=== PATIENT | female | born 1970 | race Caucasian/White ===

== ENCOUNTER → 2018-10-20 10:44 | Emergency (ER) | payer OTHER ==
[~2018-10-20 10:44] MED LIST: Iohexol 300* (CONTRAST) 10 ML SDV IV ONE; Magnesium Oxide TAB* 400 MG PO ONE; NS 0.9% 1000 ML** 1,000 ML IV ONE; Ondansetron INJ* 2 MG/ML VIAL IV ONE; PROCHLORPERAZINE INJ 5 MG/ML 2 ML VIAL IV PRN; fentaNYL* 50 MCG/ML 2 ML VIAL (100 MCG VIAL) IV SLOW PU ONE
--- NOTE | 2018-10-20 11:23 | ED ---
GI/ HPI - HPI Summary HPI Summary: This pt is a 47 y/o female presenting to [facility] c/o nausea, vomiting, and right flank pain today. Pt reports she had J-pouch surgery for colon CA and a temporary ileostomy was placed about 1 month ago in [place] by Dr. Poole. She states she had complications from this surgery and her uterus and bladder were "nicked" and now has stents in her ureter and bladder. Pt was discharged home on 10/15/18. Pt reports feeling well since being discharged home until this morning. This morning she woke up with nausea and vomiting, unable to tolerate PO. Pt spoke with the ostomy nurse this morning and was advised to come to the ED. Currently she reports right flank pain. Denies fever. Pt has an ostomy bag and denies pain around this area. - History of Current Complaint Chief Complaint: EDNauseaVomitDiarrh Time Seen by Provider: 10/20/18 11:07 Stated Complaint: SURGERY THREE WEEKS AGO, FEVER, VOMIING, WEAKNESS Hx Obtained From: Patient Onset/Duration: Started Hours Ago, Still Present Timing: Lasting Hours Current Severity: Moderate Pain Intensity: 6 Location of Pain: Flank - Right Associated Signs and Symptoms: Positive: Nausea, Vomiting, Flank Pain - Right. Negative: Fever Aggravating Factor(s): Nothing Alleviating Factor(s): Nothing - Allergy/Home Medications Allergies/Adverse Reactions: Allergies Allergy/AdvReac Type Severity Reaction Status Date / Time morphine Allergy Difficulty Verified 10/20/18 11:03 Breathing Home Medications: Home Medications Enoxaparin(*) [Lovenox(*)] 40 mg SUBCUT Q24HR 10/20/18 [History Confirmed ] Hydrocodone/Acetaminophen [Hydrocodone-Acetamin 5-325 mg] 1 - 2 tab PO Q4H PRN 10/20/18 [History Confirmed 10/20/18] Levothyroxine Sodium 75 mg PO DAILY 10/20/18 [History Confirmed 10/20/18] Tamsulosin CAP* [Flomax CAP*] 0.4 mg PO DAILY 10/20/18 [History Confirmed ] PMH/Surg Hx/FS Hx/Imm Hx Endocrine/Hematology History: Denies: Hx Diabetes Cardiovascular History: Denies: Hx Hypertension, Hx Pacemaker/ICD GI History: Reports: Other GI Disorders - resection of all Large bowels History: Reports: Other Problems/Disorders - hx renal calculi resolved in 2009 Denies: Hx Renal Disease Sensory History: Denies: Hx Hearing Aid Neurological History: Reports: Hx Headaches, Hx Migraine Psychiatric History: Denies: Hx Panic Disorder - Cancer History Cancer Type, Location and Year: Colon CA - Surgical History Surgery Procedure, Year, and Place: chest surgery (PECTUS EXCAVATUM W/ METAL JANAY IN CHEST) 83;- METAL RODS REMOVED 2016. hysterectomy 02;. cholectomy 07;. 91;. COLON - REMOVED - DUE AFC - HEREDITARY. ileostomy/Jpouch. ureteral stents bilaterally Hx Anesthesia Reactions: No Infectious Disease History: No Infectious Disease History: Denies: Traveled Outside the [place] in Last 30 Days - Family History Known Family History: Negative: Cardiac Disease, Hypertension, Diabetes - Social History Alcohol Use: Occasionally Substance Use Type: Reports: None Smoking Status (MU): Never Smoked Tobacco Review of Systems Negative: Fever Positive: Vomiting, Nausea Positive: flank pain - right All Other Systems Reviewed And Are Negative: Yes Physical Exam - Summary Physical Exam Summary: VITAL SIGNS: Reviewed. GENERAL: Patient is a thin female in no acute distress. HEAD AND FACE: Normocephalic and atraumatic. EYES: PERRLA, EOMI x 2, No injected conjunctiva. EARS: Hearing grossly intact. Ear canals and tympanic membranes are WNL. MOUTH: Oropharynx within normal limits. NECK: Supple, trachea is midline, no adenopathy, no JVD. CHEST: Symmetric, no tenderness at palpation LUNGS: Clear to auscultation bilaterally. No wheezing or crackles. CVS: RRR, S1 and S2 present, no murmurs or gallops appreciated. ABDOMEN: Soft, right flank tenderness. Ileostomy bag. EXTREMITIES: FROM in all major joints, no edema, no cyanosis or clubbing. NEURO: Alert and oriented x 3. No acute neurological deficits. Speech is normal. SKIN: Dry and warm. Triage Information Reviewed: Yes Vital Signs On Initial Exam: Initial Vitals Temp Pulse Resp BP Pulse Ox 98.9 F 126 16 115/88 98 10/20/18 10:59 10/20/18 10:59 10/20/18 10:59 10/20/18 10:59 10/20/18 10:59 Vital Signs Reviewed: Yes Diagnostics - Vital Signs Vital Signs Temp Pulse Resp BP Pulse Ox 10/20/18 10:59 98.9 F 126 16 115/88 98 - Laboratory Result Diagrams: 10/20/18 11:41 10/20/18 11:41 Lab Statement: Any lab studies that have been ordered have been reviewed, and results considered in the medical decision making process. - CT CT Abdomen/Pelvis CT Interpretation Completed By: Radiologist Summary of CT Findings: IMPRESSION: 1. Postsurgical change, status post total colectomy. 2. There is small amount of free fluid within the pelvis. 3. Bilateral ureteral stents with mild bilateral hydronephrosis. 4. Fatty infiltration of the liver. Dr. Jc has reviewed this report. - EKG 12:06 Cardiac Rate: Tachycardia - at 106 bpm EKG Rhythm: Sinus Tachycardia Summary of EKG Findings: No ST elevations. Normal axis. Re-Evaluation - Re-Evaluation First Eval Re-Evaluation Time: 15:44 Change: Improved Comment: Reviewed the lab and CT results with pt. Discussed Julissa Garcia's, CASE INVESTIGATOR , recommendations with the pt. Pt agrees to go home, she feels better. GIGU Course/Dx - Course Assessment/Plan: This pt is a 47 y/o female presenting to [facility] c/o nausea, vomiting, and right flank pain today. Pt reports she had J-pouch surgery for colon CA and a temporary ileostomy was placed about 1 month ago in [place] by Dr. Poole. She states she had complications from this surgery and her uterus and bladder were "nicked" and now has stents in her ureter and bladder. Pt was discharged home on 10/15/18. Pt reports feeling well since being discharged home until this morning. This morning she woke up with nausea and vomiting, unable to tolerate PO. Pt spoke with the ostomy nurse this morning and was advised to come to the ED. Currently she reports right flank pain. Denies fever. Pt has an ostomy bag and denies pain around this area. Past medical history significant for colon cancer. Blood test results without any significant abnormality except for platelet count of 595, chloride is 94, anion gap is 15, glucose is 110, lactic acid is 2.3, calcium is 10.4, magnesium is 1.7, total bili is 1.5 and alkaline phosphatase 157. In the ED course the patient was given IV fluids, she was given Compazine for nausea and vomiting and fentanyl for pain. Abdominal and pelvic CT IMPRESSION: 1. POSTSURGICAL CHANGE, STATUS POST TOTAL COLECTOMY. 2. THERE IS SMALL AMOUNT OF FREE FLUID WITHIN THE PELVIS. 3. BILATERAL URETERAL STENTS WITH MILD BILATERAL HYDRONEPHROSIS. 4. FATTY INFILTRATION OF THE LIVER. After the patient was hydrated, given the Compazine and fentanyl for the pain, the patients symptoms have resolved. I discussed my physical exam and findings with the Ms. Pari Garcia CASE INVESTIGATOR with Dr. Poole she recommends for the patient to be discharged home with a prescription for Compazine and that she has an appointment to see her as well as Dr. Poole tomorrow morning. I discussed all the findings and test results with the patient. Patient was instructed to return to the emergency room immediately if any of the symptoms return worsens. Plan of care was discussed with the patient and understands and agrees. All questions were answered at patient satisfaction. There were no further complaints or concerns. Lung exam before discharge: CTA B/L. Good air exchange. No wheezing or crackles heard. CVS: S1 and S2 present. No murmurs appreciated. Patient is alert and oriented x 3. Patient is hemodynamically stable. Patient will be discharged home with follow up from her PCP in the next 2-3 days. - Diagnoses Provider Diagnoses: Nausea and vomiting, Flank pain - Physician Notifications Discussed Care Of Patient With: Julissa Garcia Time Discussed With Above Provider: 15:39 Instructed by Provider To: Other - Discussed the case with Julissa Garcia NP with Dr. oPole, who recommends to discharge the pt home with rx for Compazine. Pt has an appointment with Dr. Poole tomorrow morning. Discharge - Sign-Out/Discharge Documenting (check all that apply): Patient Departure - Discharge home Patient Received Moderate/Deep Sedation with Procedure: No - Discharge Plan Condition: Stable Disposition: HOME Prescriptions: Prochlorperazine TAB* [Compazine Tab*] 10 mg PO Q8H PRN #30 tab PRN Reason: Vomiting Patient Education Materials: Acute Nausea and Vomiting (ED), Flank Pain (ED) Referrals: Tobin Carter MD [Primary Care Provider] - Additional Instructions: FOLLOW UP WITH DR. POOLE TOMORROW MORNING, 10/21/18, SCHEDULED. RETURN TO THE EMERGENCY DEPARTMENT FOR ANY WORSENING OR NEW SYMPTOMS. - Attestation Statements Document Initiated by Scribe: Yes Documenting Scribe: Basilia Beaulieu Provider For Whom Scribe is Documenting (Include Credential): Den Jc MD Scribe Attestation: Basilia Raines, scribed for Den Jc MD on 10/20/18 at 1617. Status of Scribe Document: Ready
[2018-10-20 11:54] LABS: ABS Basophils 0.1 10^3/ul (0-0.2); ABS Eosinophils 0.1 10^3/ul (0-0.6); ABS Lymphocytes 1.7 10^3/ul (1.0-4.8); ABS Monocytes 0.8 10^3/ul (0-0.8); ABS Neutrophils 7.6 10^3/ul (1.5-7.7); Eosinophil % 1.1 %; Hematocrit 37 % (35-47); Hemoglobin 12.1 g/dL (12.0-16.0); Lymphocyte % 16.4 %; Mean Corpuscular HGB Conc 33 g/dL (31-36); Mean Corpuscular Hemoglobin 28 pg (27-31); Mean Corpuscular Volume 86 fL (80-97); Mean Platelet Volume 6.7 fL (7.4-10.4); Platelet Count 595 10^3/uL (150-450); Red Blood Count 4.29 10^6 /uL (3.70-4.87); Red Cell Distribution Width 14 % (10.5-15); White Blood Count 10.2 10^3/uL (3.5-10.8)
[2018-10-20 12:39] LABS: Albumin 4.6 g/dL (3.2-5.2); Albumin/Globulin Ratio 1.3 (1-3); BUN/Creatinine Ratio 20.5 (8-20); C Reactive Protein 2.14 mg/L (<8.01); Calcium 10.4 mg/dL (8.6-10.3); EGFR Non-African American 85.1 (>60); Globulin 3.5 g/dL (2-4); Magnesium 1.7 mg/dL (1.9-2.7); Potassium 4.3 mmol/L (3.5-5.0); Total Bilirubin 1.5 mg/dL (0.2-1.0); Total Protein 8.1 g/dL (6.4-8.9)
[2018-10-20 16:04] VITALS: BP 122/71
== END | disposition home or self-care (01) ==
LOC: ED 10:44
DX: R11.2 Nausea with vomiting, unspecified (principal); R10.84 Generalized abdominal pain; R51 Headache
CPT/HCPCS: 36415; 74177; 80053; 82150; 83605; 83690; 83735; 83880; 85025; 86140; 93005; 96374; 96375; 99284; J0780; J3010; Q9967

== ENCOUNTER 2018-10-31 21:24 | Observation (INO) | payer OTHER ==
[2018-10-31] MEDS ORDERED: NS 0.9% 1000 ML** 1,000 ML IV ONE (23:36)
[2018-10-31] MEDS ORDERED: Ondansetron INJ* 2 MG/ML VIAL IV ONE (23:36)
--- NOTE | 2018-10-31 23:36 | ED ---
Complex/Multi-Sys Presentation - HPI Summary HPI Summary: Patient with history of recent colon resection for colon cancer on 09/22 in [place] with current ileostomy complains of significant fluid output into her ileostomy bag, nausea and vomiting and feeling dehydrated. Patient states she has been having episodes of nausea and vomiting since discharge from surgery, has a prescription for Compazine which is not helping. States increase in fluid output into her ileostomy bag today. Denies fever, cough, sore throat, CP , SOB, abdominal pain, change in urine, change in BM. - History Of Current Complaint Chief Complaint: EDNauseaVomitDiarrh Time Seen by Provider: 10/31/18 23:16 Hx Obtained From: Patient Onset/Duration: Sudden Onset, Lasting Hours Timing: Intermittent, Lasting: Severity Currently: Moderate Severity Initially: Moderate Associated Signs And Symptoms: Positive: Nausea, Vomiting, Diarrhea - Allergies/Home Medications Allergies/Adverse Reactions: Allergies Allergy/AdvReac Type Severity Reaction Status Date / Time morphine Allergy Difficulty Verified 10/20/18 11:03 Breathing PMH/Surg Hx/FS Hx/Imm Hx Endocrine/Hematology History: Denies: Hx Diabetes Cardiovascular History: Denies: Hx Hypertension, Hx Pacemaker/ICD GI History: Reports: Other GI Disorders - resection of all Large bowels History: Reports: Other Problems/Disorders - hx renal calculi resolved in 2009 Denies: Hx Renal Disease Sensory History: Denies: Hx Hearing Aid Neurological History: Reports: Hx Headaches, Hx Migraine Psychiatric History: Denies: Hx Panic Disorder - Cancer History Cancer Type, Location and Year: Colon CA - Surgical History Surgery Procedure, Year, and Place: chest surgery (PECTUS EXCAVATUM W/ METAL JANAY IN CHEST) 83;- METAL RODS REMOVED 2016. hysterectomy 02;. cholectomy 07;. 91;. COLON - REMOVED - DUE AFC - HEREDITARY. ileostomy/Jpouch. ureteral stents bilaterally Hx Anesthesia Reactions: No Infectious Disease History: No Infectious Disease History: Denies: Traveled Outside the US in Last 30 Days - Family History Known Family History: Negative: Cardiac Disease, Hypertension, Diabetes - Social History Alcohol Use: Occasionally Substance Use Type: Reports: None Smoking Status (MU): Never Smoked Tobacco Review of Systems Constitutional: Negative Eyes: Negative ENT: Negative Cardiovascular: Negative Respiratory: Negative Positive: Vomiting, Diarrhea, Nausea Genitourinary: Negative Musculoskeletal: Negative Skin: Negative Neurological: Negative Psychological: Normal All Other Systems Reviewed And Are Negative: Yes Physical Exam - Summary Physical Exam Summary: Abdomen nontender. Lung sounds clear to auscultation bilaterally. RRR. Ileostomy present. No blood noted in ileostomy. Triage Information Reviewed: Yes Vital Signs On Initial Exam: Initial Vitals Temp Pulse Resp BP Pulse Ox 98.5 F 120 18 120/73 97 10/31/18 21:37 10/31/18 21:37 10/31/18 21:37 10/31/18 21:37 10/31/18 21:37 Vital Signs Reviewed: Yes Appearance: Positive: Well-Appearing Skin: Positive: Warm Head/Face: Positive: Normal Head/Face Inspection Eyes: Positive: Normal Neck: Positive: Supple Respiratory/Lung Sounds: Positive: Clear to Auscultation Cardiovascular: Positive: Normal Abdomen Description: Positive: Nontender Musculoskeletal: Positive: Normal Neurological: Positive: Normal Psychiatric: Positive: Normal AVPU Assessment: Alert - [place] Coma Scale Best Eye Response: 4 - Spontaneous Best Motor Response: 6 - Obeys Commands Best Verbal Response: 5 - Oriented Coma Scale Total: 15 Diagnostics - Vital Signs Vital Signs Temp Pulse Resp BP Pulse Ox 10/31/18 21:37 98.5 F 120 18 120/73 97 - Laboratory Result Diagrams: 11/01/18 00:22 11/01/18 00:00 Lab Statement: Any lab studies that have been ordered have been reviewed, and results considered in the medical decision making process. Complex Multi-Symp Course/Dx Course Of Treatment: Patient with history of recent colon resection for colon cancer on 09/22 in [place] with current ileostomy complains of significant fluid output into her ileostomy bag, nausea and vomiting and feeling dehydrated. Patient states she has been having episodes of nausea and vomiting since discharge from surgery, has a prescription for Compazine which is not helping. States increase in fluid output into her ileostomy bag today. Denies fever, cough, sore throat, CP, SOB, abdominal pain, change in urine, change in BM. Physical exam:Abdomen nontender. Lung sounds clear to auscultation bilaterally. RRR. Ileostomy present. No blood noted in ileostomy. Tachycardic. Vital signs otherwise unremarkable. WBC 20, increased from prior visit on 10/20. Sodium 129. Lactic 2.2. Creatinine 2.0 increased from 173 on prior visit 10/20. Patient nausea controlled with Phenergan IM. States she feels better after [address] abdomen and pelvis without contrast pending. - Diagnoses Provider Diagnoses: Nausea vomiting and diarrhea Discharge - Sign-Out/Discharge Documenting (check all that apply): Sign-Out Patient Signing out patient TO: Ryan Alcantara Patient Received Moderate/Deep Sedation with Procedure: No - Discharge Plan Condition: Stable Referrals: Tobin Carter MD [Primary Care Provider] - - Billing Disposition and Condition Condition: STABLE
[2018-11-01] MEDS ORDERED: NS 0.9% 1000 ML** 1,000 ML IV ONE (00:46)
[2018-11-01 00:48] LABS: Hematocrit 41 % (35-47); Hemoglobin 13.9 g/dL (12.0-16.0); Mean Corpuscular HGB Conc 34 g/dL (31-36); Mean Corpuscular Hemoglobin 28 pg (27-31); Mean Corpuscular Volume 83 fL (80-97); Red Blood Count 4.91 10^6 /uL (3.70-4.87); Red Cell Distribution Width 14 % (10-15); White Blood Count 20.4 10^3/uL (3.5-10.8)
[2018-11-01] MEDS ORDERED: PROMETHAZINE 25 MG PR ONE (00:55)
[2018-11-01 01:11] LABS: ABS Lymphocytes 1.3 10^3/ul (1.0-4.8); ABS Monocytes 0.7 10^3/ul (0-0.8); ABS Neutrophils 18.4 10^3/ul (1.5-7.7); Eosinophil % 0.2 %; Lymphocyte % 6.5 %; Mean Platelet Volume 8.1 fL (7.4-10.4); Nucleated Red Blood Cells % 0.1; Platelet Count 495 10^3/uL (150-450)
[2018-11-01 01:11] LABS: Albumin 5.4 g/dL (3.2-5.2); Calcium 11.5 mg/dL (8.6-10.3); Potassium 4.7 mmol/L (3.5-5.0); Total Bilirubin 1.4 mg/dL (0.2-1.0)
[2018-11-01 01:17] LABS: Albumin/Globulin Ratio 1.5 (1-3); BUN/Creatinine Ratio 11.5 (8-20); C Reactive Protein 1.81 mg/L (<8.01); EGFR Non-African American 26.5 (>60); Globulin 3.6 g/dL (2-4)
[2018-11-01 01:23] LABS: HCG Pregnancy 13.5 mIU/mL
[2018-11-01] MEDS ORDERED: Promethazine INJ(RESTRICTED)* 25 MG/ML 1 ML VIAL IM ONE (01:23)
[2018-11-01] MEDS ORDERED: Loperamide CAP* 2 MG PO ONE ×2 (01:58→02:00)
--- NOTE | 2018-11-01 05:30 | ED ---
Progress - Progress Note Progress Note: Receiving patient from [facility] pending CT Abd/Pel CT ABD/Pel: 1. Cholecystectomy. 2. Hysterectomy. 3. Status post subtotal colectomy with right cobstomy. 4. Increased density within the Marilin's pouch lumen and blood cannot be entirely excluded. 5. Bilateral ureteral stents. ED Provider has reviewed this report. Dr. Alvarado, Hospitalist, accepted the patient for admission. A plan for admission was discussed with the patient and she was agreeable with this plan. Course/Dx - Course Course Of Treatment: Receiving patient from [facility] pending CT Abd/Pel. CT ABD /Pel: 1. Cholecystectomy. 2. Hysterectomy. 3. Status post subtotal colectomy with right cobstomy. 4. Increased density within the Marilin's pouch lumen and blood cannot be entirely excluded. 5. Bilateral ureteral stents. ED Provider has reviewed this report. Dr. Alvarado, Hospitalist, accepted the patient for admission. A plan for admission was discussed with the patient and she was agreeable with this plan. - Diagnoses Provider Diagnoses: Gastroenteritis, Dehydration - Provider Notifications Discussed Care Of Patient With: Basilia Alvarado - Hospitalist Time Discussed With Above Provider: 06:00 Discharge - Sign-Out/Discharge Documenting (check all that apply): Patient Departure - Admission - Discharge Plan Condition: Stable Disposition: ADMITTED TO [facility] - Billing Disposition and Condition Condition: STABLE Disposition: Admitted to [facility] - Attestation Statements Document Initiated by Erick: Yes Documenting Adrienneibe: Rayray Martin Provider For Whom Erick is Documenting (Include Credential): Ryan Alcantara MD Scribe Attestation: Rayray Raines, scribed for Ryan Alcantara MD on 11/01/18 at 2307. Scribe Documentation Reviewed: Yes Provider Attestation: The documentation as recorded by the Rayray rdz accurately reflects the service I personally performed and the decisions made by , Ryan Alcantara MD Status of Scribe Document: Viewed
[2018-11-01 07:14] LABS: Hematocrit 32 % (35-47); Mean Corpuscular HGB Conc 34 g/dL (31-36); Mean Corpuscular Hemoglobin 28 pg (27-31); Mean Corpuscular Volume 83 fL (80-97); Mean Platelet Volume 6.8 fL (7.4-10.4); Platelet Count 352 10^3/uL (150-450); Red Blood Count 3.91 10^6 /uL (3.70-4.87); Red Cell Distribution Width 14 % (10-15); White Blood Count 7.9 10^3/uL (3.5-10.8)
[2018-11-01] MEDS ORDERED: HYDROcodone/ACETAMIN 5-325 MG* 1 TAB PO PRN (07:35)
[2018-11-01] MEDS ORDERED: Acetaminophen TAB* 325 MG PO PRN (07:43)
[2018-11-01 07:44] LABS: BUN/Creatinine Ratio 15.4 (8-20); EGFR African American 47.2 (>60); Magnesium 1.6 mg/dL (1.9-2.7); Potassium 4.5 mmol/L (3.5-5.0)
[2018-11-01] MEDS ORDERED: Magnesium Sulfate 2 GM IV* 2 GM/50 ML BAG IVPB ONE (08:00)
[2018-11-01 08:20] LABS: Albumin/Globulin Ratio 1.5 (1-3); Globulin 2.7 g/dL (2-4); Indirect Bilirubin 1.1 mg/dL (0.3-1.0); Total Bilirubin 1.3 mg/dL (0.2-1.0); Total Protein 6.7 g/dL (6.4-8.9)
[2018-11-01] MEDS: PROCHLORPERAZINE INJ 5 MG/ML 2 ML VIAL IV PRN (09:48)
[2018-11-01] MEDS: Enoxaparin(*) 40 MG/0.4 ML SYR SUBCUT SCH (09:49)
[2018-11-01] MEDS: Azithromycin 500 mg/250 ml NS 500 MG/250 ML BAG IVPB SCH (09:49)
[2018-11-01] MEDS: Tamsulosin CAP* 0.4 MG PO SCH (09:50)
--- NOTE | 2018-11-01 10:36 | HP ---
CC: Dr. Carter HISTORY AND PHYSICAL: DATE OF ADMISSION: 11/01/18 TIME OF EVALUATION: 7:20 a.m. PRIMARY CARE PROVIDER: Dr. Carter CHIEF COMPLAINT: Diarrhea. HISTORY OF PRESENT ILLNESS: Mrs. Vincent is a 42-year-old with a past medical history of hypothyroidi sm, familial adenomatous polyposis, colon cancer, status post total colectomy with ileostomy on 09/22, who presents to the emergency room with complaints of nausea, vomiting, and increased output fro m her ileostomy. The patient states that she had a colectomy with J-pouch and ileostomy on 09/22/18 done at [facility]. She states she was diagnosed with stage 1 colon cancer and the p trent is for her to return and have an anastomosis done end of November. She states her surgery was complic ated by bladder and ureter damage, requiring stent placement. She states that she was recovering fro m surgery, but yesterday she started to have GI upset. She had German food that included chicken we dges and fried rice and after that her GI upset became worse followed by 2 episodes of vomiting. She states that her ileostomy output became very worry and she lost count of how many times she had to e mpty her bag. She denies fever, chills, chest pain, cough, palpitations. As described above, she hernandez s had GI issues since surgery, but they got markedly worse yesterday after her meal. PAST MEDICAL HISTORY: 1. Colon cancer, reportedly stage 1, status post colectomy with J-pouch and ileostomy with reported bladder and ureteral lesions, requiring bilateral stent placement. 2. Hypothyroidism. 3. Familial adenomatous polyposis. 4. Status post oophorectomy. 5. Status post cholecystectomy. 6. Status post partial colectomy when she was 9 years old. 7. Status post pectus excavatum surgery. 8. Status post abdominal hysterectomy. MEDICATION LIST: 1. Lovenox 40 mg subcutaneously daily for 4 weeks after surgery. 2. Hydrocodone/acetaminophen 5/325 mg 1 to 2 tablets p.o. q.4 hours p.r.n. pain or fever. 3. Levothyroxine 75 mg p.o. daily. 4. Compazine 10 mg p.o. q.8 hours p.r.n. nausea and vomiting. 5. Tamsulosin 0.4 mg p.o. daily. ALLERGIES: With MORPHINE, the patient experienced difficulty breathing. FAMILY HISTORY: Her mother is healthy. Father of suicide. SOCIAL HISTORY: She is a nonsmoker. No history of alcohol, tobacco, or drug use. 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 She is . She has 2 children that live with her, but they are in their e anatoly 20s and there was no sick contact at home. Surrogate decision maker is her , Montez leija, phone number is [phone]. REVIEW OF SYSTEMS: A 14-point review of was performed and all the pertinent negative and positive fi ndings are in the HPI. PHYSICAL EXAMINATION GENERAL: The patient is a pleasant, middle-aged lady, lying in bed, in no acute distress. VITAL SIGNS: Temperature 98.5, heart rate is 90, respiratory rate is 18, oxygen saturation is 100% o n room air, blood pressure is 119/70. HEENT: Pupils are equal, dry mucous membranes. CVS: Normal S1, S2. Regular rate and rhythm. CHEST: Breath sounds present bilaterally with no added sounds. ABDOMEN: Soft. There are multiple laparoscopic surgical incisions, well healed with no erythema or drainage. The patient had an ostomy on the right lower quadrant draining watery, green stool. Bowel sounds are present. EXTREMITIES: No edema. NEUROLOGIC: She is alert and oriented x3. Able to move all 4 extremities. LABORATORY/IMAGING DATA: The patient had an initial CBC that showed WBC of 20.4, hemoglobin of 13.9 , hematocrit of 41, platelets 495 with 89% neutrophils. A repeat CBC done 7 hours later shows a WBC of 7.9, hemoglobin of 11, hematocrit of 32, platelets of 352. Chemistry showed sodium of 129, potass ium of 4.7, chloride of 88, bicarb of 19, anion gap of 22, BUN of 23, creatinine of 2, glucose of 150 , lactic acid is 2.2, calcium is 11.5. LFTs were elevated with a total bilirubin of 1.4, AST of 49, ALT of 53, alk phos of 195, total protein of 9, albumin of 5.4. Repeat test done at 7, showed sodium of 133, her anion gap has closed. Her bicarb has normalized. Her creatinine is down to 1.4. Her la ctic acid is 1.2. Her magnesium is 1.6. CT of the abdomen and pelvis without contrast showed status post cholecystectomy, hysterectomy, statu s post subtotal colectomy with right ostomy, increased density within the Marilin's pouch lumen and blood cannot be entirely excluded, bilateral ureteral stents. ASSESSMENT AND PLAN: Mrs. Vincent is a 48-year-old female with a past medical history of hypothyroidi sm, familial adenomatous polyposis, reported stage 1 colon cancer, status post colectomy with ostomy, who presented to the emergency room with worsening of nausea and vomiting and increased ostomy outpu t, likely secondary to viral gastroenteritis, possible Campylobacter. 1. Sepsis. The patient met sepsis criteria on admission with tachycardia and leukocytosis, but I be lieve most of her changes are secondary to severe dehydration and not infection. She probably has a viral gastroenteritis and with IV hydration, her white cell count has already normalized and her othe r electrolyte imbalances are also improving. 2. Probable viral gastroenteritis. I suspect the patient's presentation is secondary to a viral pro cess, but Campylobacter is on the differential considering her meal of German food with fried rice b efore her symptoms got worse. We will send stool workup and she will receive 3 days of azithromycin just in case this is Campylobacter. We will monitor her ostomy output. Records from her procedure w ill be requested from [facility]. 3. Dehydration. Already improving. The patient's leukocytosis has resolved. Her anion gap and the mild acidosis also resolved and her renal function is improving. We are going to replete her magnesi um. 4. Lactic acidosis. Secondary to dehydration. This is already resolved. 5. Hypothyroidism. We will continue levothyroxine. 6. DVT prophylaxis. The patient has a score of 2 on the DVT Prophylaxis Assessment Guide and she wi ll be started on Lovenox. 7. Code status is full. TIME SPENT: Approximately 60 minutes was spent with the patient's interview, medical records review, physical examination to complete the admission, more than half of this time was spent [id number] w ith the patient and coordination of care. [id number]/[facility] #: [id number]
[2018-11-01] MEDS: Lactated Ringers 1000 ML Bag* 1,000 ML IV SCH ×2 (11:13→18:21)
--- NOTE | 2018-11-01 16:02 | CONS ---
GASTROENTEROLOGY CONSULT: DATE: 11/01/18 CONSULTING PHYSICIANS: Tobin Jackson. REASON FOR CONSULTATION: Episode of nausea, vomiting and increased ileostomy output after a German meal in a woman with FAP. 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 The restaurant meal was rice and chicken from where she has been before and nothing was obviously off. She had been to the emergency room with similar symptoms 10 days before, had unremarkable labs and was rehydrated and sent home. She was recently discharged from [facility] after completion proctocolectomy on 09/22/18 spending 23 days because there was the need for ureteral stenting because of "nicking" first on the left and then on the right. She was eating solid food for much of that hospital stay. Those records are on request. For the last several years, she has been getting routine flexible sigmoidoscopies once a year at [facility] and one on 08/28/18 reportedly showed rectal cancer and surgery took place 3 weeks later. Her baseline back in fall 2017, was generally doing well and said she was not on any dietary restrictions. She has never had an episode of abdominal obstruction requiring NG suction despite numerous surgeries outlined below. She is somewhat of a difficult historian, speaking very softly even after encouragement and stating very little spontaneously. No one else she knows is ill. The morning of symptom onset, she had had eggs and toast and the day before foods that she does not suspect. PAST MEDICAL HISTORY: 1. Familial adenomatous polyposis - subtotal colectomy at age 9. She had had upper endoscopy by Dr Perea about 15 years ago with no sign of polyps. She has not had another upper endoscopy since then. 2. Hysterectomy with oophorectomy in 2002 - estimated. 3. Cholecystectomy in 2006 with no stones found, but a symptomatic course with numerous admissions ending at that time. 4. C-spine surgery in 2000. 5. Pectus excavatum surgery in 2016 with rods temporarily. 6. Completion proctectomy on 09/22/18 at [facility] by Dr. Poole. 7. History of renal stones and recurring ureteroscopies, Dr. Das, 2006 and 2007. 8. Fibromyalgia. MEDICATIONS: At home: Levothyroxine 75 mcg; hydrocodone p.r.n.; Flomax 0.4; Lovenox 40 mg daily. SOCIAL HISTORY: She is and has 4 children. Only one, a daughter has FAP and had colectomy at age 11. That daughter is a radiology receptionist at a subspecialty office with [employer] [facility] [address]. A sister had FAP and a brother does not. REVIEW OF SYSTEMS: No history of syncope, palpitations, cardiac disease, TIA, CVA, seizures, hepatitis, jaundice, or rheumatologic disease. EXAM: She is a slender, middle-aged woman, in no distress, lying in bed, speaking very softly and almost meekly. Vital signs are normal, afebrile, pulse 90, blood pressure 95/65. HEENT exam is unremarkable. There is no icterus. Mucous membranes appear a little dry. She has no adenopathy. Her lungs are clear and heart sounds are regular. The abdomen has a right periumbilical ileostomy and some other trocar wounds. It is fairly symmetric. Bowel sounds are diminished. She has some generalized resistance, but no particular guarding. Perianal inspection was deferred. Extremities show no edema. LABS: 7 hours after admission and considerable hydration, hemoglobin 11.0, hematocrit 32, MCV 83, white count 7.9. Sodium 133, BUN 22, creatinine 1.43. LFTs show total bilirubin 1.30, alkaline phosphatase 133, and ALT 35. Albumin 4.0. ABDOMINAL IMAGING: CT scan does not show any sign of obstruction. There is some dense fluid in the lower pelvis near where the rectum was removed, images 47 to 54 on the coronal images. The biliary tree is not clearly distended on these images, though it is little difficult to pick out without any oral contrast. IMPRESSION: This 48-year-old woman, who 5 weeks ago had completion proctocolectomy, now has been to the emergency room twice in the last 2 weeks with nausea, vomiting and diarrhea. They appear to have been independent events more significant given her tendency to atypical functional distress ( 2003 to 2006). There has not been any fever, obvious exposure or protracted infectious process although two viral gastroenteritis bouts remains a possibility. She is being treated empirically for Campylobacter. That is certainly reasonable. Toxigenic food poinsoning is most likely and we will probably never know for sure. The elevated alkaline phosphatase is nonspecific, but might indicate presence of sludge in the common bile duct. The elevation is not very striking, but can be followed. 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 She appears improved at this moment and cautious advancement of diet appears prudent. [id number]/[facility] #: [id number] GUY
[2018-11-02] MEDS: Lactated Ringers 1000 ML Bag* 1,000 ML IV SCH ×3 (01:09→18:27)
[2018-11-02] MEDS: Levothyroxine TAB* 75 MCG TAB PO SCH (05:36)
[2018-11-02] MEDS ORDERED: Levothyroxine TAB* 75 MCG TAB PO SCH (06:00)
[2018-11-02 07:05] LABS: ABS Eosinophils 0.2 10^3/ul (0-0.6); ABS Lymphocytes 1.3 10^3/ul (1.0-4.8); ABS Monocytes 0.4 10^3/ul (0-0.8); ABS Neutrophils 2.4 10^3/ul (1.5-7.7); Eosinophil % 4.1 %; Hematocrit 31 % (35-47); Hemoglobin 9.6 g/dL (12.0-16.0); Lymphocyte % 29.3 %; Mean Corpuscular HGB Conc 31 g/dL (31-36); Mean Corpuscular Hemoglobin 28 pg (27-31); Mean Corpuscular Volume 90 fL (80-97); Mean Platelet Volume 7.4 fL (7.4-10.4); Nucleated Red Blood Cells % 0.2; Platelet Count 212 10^3/uL (150-450); Red Blood Count 3.46 10^6 /uL (3.70-4.87); Red Cell Distribution Width 14 % (10-15); White Blood Count 4.3 10^3/uL (3.5-10.8)
[2018-11-02 07:13] LABS: Anion Gap 8 mmol/L (2-11); CO2 Carbon Dioxide 22 mmol/L (22-32); Calcium 9.1 mg/dL (8.6-10.3); Chloride 104 mmol/L (101-111); Potassium 3.9 mmol/L (3.5-5.0); Sodium 134 mmol/L (135-145)
[2018-11-02 07:19] LABS: BUN/Creatinine Ratio 18.1 (8-20); Blood Urea Nitrogen 13 mg/dL (6-24); EGFR African American 104.2 (>60); EGFR Non-African American 86.1 (>60); Glucose 91 mg/dL (70-100)
[2018-11-02] MEDS ORDERED: NS 0.9% 500 ML* 500 ML IV ONE (08:02)
[2018-11-02] MEDS: Azithromycin 500 mg/250 ml NS 500 MG/250 ML BAG IVPB SCH (08:09)
[2018-11-02] MEDS: Tamsulosin CAP* 0.4 MG PO SCH (08:10)
[2018-11-02] MEDS: Enoxaparin(*) 40 MG/0.4 ML SYR SUBCUT SCH (08:10)
--- NOTE | 2018-11-02 08:10 | PN ---
Subjective Date of Service: 11/02/18 Interval History: Patient reports she feels better today; less output from colostomy. No fevers. No N/V. Reports she would like to advance her diet and feels hungry. Denies dizziness. Objective Active Medications: Acetaminophen (Tylenol Tab*) 650 mg PO Q6H PRN PRN Reason: pain/fever Hydrocodone Bitart/Acetaminophen ([place] 5-325 Tab*) 1 tab PO Q4H PRN PRN Reason: PAIN Enoxaparin Sodium (Lovenox(*)) 40 mg SUBCUT Q24HR [facility] Last Admin: 11/01/18 09:49 Dose: 40 mg Azithromycin (Zithromax 500 Mg/250 Ml) 500 mg in 250 mls @ 250 mls/hr IVPB Q24H [facility] Stop: 11/03/18 09:29 Last Admin: 11/01/18 09:49 Dose: 250 mls/hr Lactated Ringer's (Lactated Ringers 1000 Ml Bag*) 1,000 mls @ 150 mls/hr IV PER RATE [facility] Last Admin: 11/02/18 01:09 Dose: 150 mls/hr Sodium Chloride (Ns 0.9% 500 Ml*) 500 mls @ 1,000 mls/hr IV ONCE ONE Stop: 11/02/18 08:31 Levothyroxine Sodium (Synthroid Tab*) 75 mcg PO DAILY@0600 [facility] Last Admin: 11/02/18 05:36 Dose: 75 mcg Prochlorperazine Edisylate (Compazine Inj*) 5 mg IV Q6H PRN PRN Reason: NAUSEA/VOMITING Last Admin: 11/01/18 09:48 Dose: 5 mg Tamsulosin HCl (Flomax Cap*) 0.4 mg PO DAILY [facility] Last Admin: 11/01/18 09:50 Dose: 0.4 mg Vital Signs - 8 hr 11/02/18 03:10 Temperature 98.2 F Pulse Rate 78 Respiratory 16 Rate Blood Pressure 96/48 (mmHg) O2 Sat by Pulse 100 Oximetry Oxygen Devices in Use Now: None Appearance: A+O x3 in NAD Eyes: No Scleral Icterus, PERRLA Ears/Nose/Mouth/Throat: Mucous Membranes Moist Respiratory: Symmetrical Chest Expansion and Respiratory Effort, Clear to Auscultation Cardiovascular: NL Sounds; No Murmurs; No JVD, RRR, No Edema Abdominal: - - ostomy training thin light brown liquid; stoma red, moist. multiple healed incisions on abdomen - nontender on exam Extremities: No Edema, No Clubbing, Cyanosis Skin: No Rash or Ulcers, No Nodules or Sclerosis Neurological: Alert and Oriented x 3, NL Sensation, NL Gait, NL Muscle Strength and Tone Lines/Tubes/Other Access: Clean, Dry and Intact Peripheral IV Nutrition: Taking PO's Result Diagrams: 11/02/18 06:37 11/02/18 06:37 Microbiology and Other Data: Microbiology 11/01/18 03:40 Aerobic Blood Culture - Final Blood Venous Not Reportable Anaerobic Blood Culture - Final Not Reportable Blood Culture - Preliminary No Growth Day 1 11/01/18 03:40 Aerobic Blood Culture - Final Blood Venous Not Reportable Anaerobic Blood Culture - Final Not Reportable Blood Culture - Preliminary No Growth Day 1 11/01/18 18:28 Gram Stain - Preliminary Abdomen 11/01/18 11:00 Stool Gross Appearance - Final Stool Stool Lactoferrin - Final Assess/Plan/Problems-Billing Assessment: Mrs. Vincent is a 48 yo female with a PMH of hypothyroidism, familial adenomatous polyposis, reports stage 1 colon cancer, s/p colectomy with ostomy who presented to the ER on 11/01 with report of N/V and increased ostomy out found to have severe dehydration, meeting criteria for sepsis. Pt had recently had Spanish food with fried rice. - Patient Problems (1) Sepsis Comment: - Resolved. Met criteria on admission with tachycardia, leukocytosis and elevated lactic - suspect this was secondary to severe dehydration. Resolved with IVFs. - blood cx NTD (2) Nausea, vomiting, and diarrhea Comment: - Much improvement overnight. No fevers. Reported high output ostomy which now is improving, no frther N/V. Plan to advance diet - viral gastroenteritis vs food borne pathogen. Was started on azithromycin x3 days to cover for Campylobacter which is on the differential considering her meal of Spanish food with fried rice. - Appreciate GI consult - ok to advance diet (3) Dehydration Comment: - improving with IVFs (4) Hypothyroidism Comment: - continue home medication (5) DVT prophylaxis Comment: - lovenox (6) Full code status Status and Disposition: inpatient. Home when medically stable most likely tomorrow
[2018-11-02 09:37] LABS: Urine Appearance Cloudy; Urine Bacteria Absent (Absent); Urine Bilirubin Negative (Negative); Urine Blood Negative (Negative); Urine Color Yellow; Urine Glucose Negative (Negative); Urine Ketones Negative (Negative); Urine Nitrite Negative (Negative); Urine Protein Negative (Negative); Urine Red Blood Cell 1+(3-5/hpf) (Absent); Urine Specific Gravity 1.006 (1.010-1.030); Urine Squamous Epithelial Cell Present (Absent); Urine Urobilinogen Negative (Negative); Urine White Blood Cell 1+(6-10/hpf) (Absent)
[2018-11-02 12:06] LABS: % Iron Saturation 10 % (15-55); Iron 54 ug/dL (50-212); LDH 169 U/L (140-271); Total Iron Binding Capacity 522 mcg/dL (250-450); Transferrin 373 mg/dL (203-362)
[2018-11-02 12:23] LABS: Ferritin 37.2 ng/mL (11-307)
[2018-11-02 12:36] LABS: Albumin 3.2 g/dL (3.2-5.2)
[2018-11-02 12:42] LABS: ALT 29 U/L (7-52); AST 50 U/L (13-39); Albumin/Globulin Ratio 1.3 (1-3); Alkaline Phosphatase 109 U/L (34-104); Globulin 2.4 g/dL (2-4); Total Protein 5.6 g/dL (6.4-8.9)
[2018-11-03] MEDS: PROCHLORPERAZINE INJ 5 MG/ML 2 ML VIAL IV PRN (03:29)
[2018-11-03] MEDS: Lactated Ringers 1000 ML Bag* 1,000 ML IV SCH (03:29)
[2018-11-03] MEDS: Levothyroxine TAB* 75 MCG TAB PO SCH (05:52)
[2018-11-03 06:13] LABS: ABS Eosinophils 0.2 10^3/ul (0-0.6); ABS Lymphocytes 1.3 10^3/ul (1.0-4.8); ABS Monocytes 0.5 10^3/ul (0-0.8); ABS Neutrophils 2.8 10^3/ul (1.5-7.7); Eosinophil % 3.8 %; Hematocrit 28 % (35-47); Hemoglobin 9.5 g/dL (12.0-16.0); Lymphocyte % 27.8 %; Mean Corpuscular HGB Conc 34 g/dL (31-36); Mean Corpuscular Hemoglobin 28 pg (27-31); Mean Corpuscular Volume 83 fL (80-97); Mean Platelet Volume 6.6 fL (7.4-10.4); Nucleated Red Blood Cells % 0.1; Platelet Count 294 10^3/uL (150-450); Red Blood Count 3.38 10^6 /uL (3.70-4.87); Red Cell Distribution Width 13 % (10-15); White Blood Count 4.8 10^3/uL (3.5-10.8)
[2018-11-03 06:32] LABS: Calcium 9.5 mg/dL (8.6-10.3); Magnesium 1.6 mg/dL (1.9-2.7); Potassium 3.6 mmol/L (3.5-5.0)
[2018-11-03 06:38] LABS: BUN/Creatinine Ratio 14.5 (8-20); EGFR African American 123.8 (>60); EGFR Non-African American 102.3 (>60)
[2018-11-03] MEDS ORDERED: Magnesium Sulfate 2 GM IV* 2 GM/50 ML BAG IVPB ONE (08:04)
[2018-11-03] MEDS ORDERED: Azithromycin TAB* 250 MG PO ONE (08:04)
[2018-11-03] MEDS: Tamsulosin CAP* 0.4 MG PO SCH (08:32)
[2018-11-03 08:54] VITALS: BP 95/58
--- NOTE | 2018-11-03 09:24 | DCNOTE ---
Subjective Date of Service: 11/03/18 Interval History: Patient reports she feels much better and her symptoms are resolved. She would like to restart her immodium as she has been taking this twice a day since surgery per colorectal surgeon. She has had no fevers. No N/V. Denies abdominal pain. Feels back to her baseline and ready to go home. She reports her blod pressure usually run low 100's. Denies any dizziness when she stands up. She has a follow up with her urologist to have her stents removed this week and f/u with colorectal surgeon in 2 weeks Objective Active Medications: Acetaminophen (Tylenol Tab*) 650 mg PO Q6H PRN PRN Reason: pain/fever Hydrocodone Bitart/Acetaminophen ([place] 5-325 Tab*) 1 tab PO Q4H PRN PRN Reason: PAIN Enoxaparin Sodium (Lovenox(*)) 40 mg SUBCUT Q24HR [facility] Last Admin: 11/02/18 08:10 Dose: 40 mg Levothyroxine Sodium (Synthroid Tab*) 75 mcg PO DAILY@0600 [facility] Last Admin: 11/03/18 05:52 Dose: 75 mcg Prochlorperazine Edisylate (Compazine Inj*) 5 mg IV Q6H PRN PRN Reason: NAUSEA/VOMITING Last Admin: 11/03/18 03:29 Dose: 5 mg Tamsulosin HCl (Flomax Cap*) 0.4 mg PO DAILY [facility] Last Admin: 11/03/18 08:32 Dose: 0.4 mg Vital Signs - 8 hr 11/03/18 11/03/18 02:43 07:46 Temperature 98.4 F 98.4 F Pulse Rate 74 85 Respiratory 16 16 Rate Blood Pressure 90/52 95/58 (mmHg) O2 Sat by Pulse 99 99 Oximetry Oxygen Devices in Use Now: None Appearance: 48 yo female A+Ox3 in NAD Eyes: No Scleral Icterus, PERRLA Ears/Nose/Mouth/Throat: Mucous Membranes Moist Neck: NL Appearance and Movements; NL JVP Respiratory: Symmetrical Chest Expansion and Respiratory Effort, Clear to Auscultation Cardiovascular: NL Sounds; No Murmurs; No JVD, RRR, No Edema Abdominal: NL Sounds; No Tenderness; No Distention, - - ostomy draining llight brown liquid stool Neurological: Alert and Oriented x 3, NL Sensation, NL Gait, NL Muscle Strength and Tone - Nutrition: Malnutrition Diagnosis/Plan Malnutrition Assessment by Registered Dietitian: Malnutrition Assessment Clinical Characteristics Acute,Moderate Malnutrition Assessment: - 12-13% wt loss x past ~ 6 weeks Criteria - < 75% estimated energy intake > 7 days Malnutrition Assessment: Will follow intake and offer an oral nutritional Interventions supplement if PO is not consistently > 50-75% of meals now that diet has advanced. Malnutrition Assessment: Goals 1. Adequate PO intake to maintain lean body mass and hydration w/o additional wt loss Result Diagrams: 11/03/18 05:51 11/03/18 05:51 Microbiology and Other Data: Microbiology 11/01/18 03:40 Aerobic Blood Culture - Final Blood Venous Not Reportable Anaerobic Blood Culture - Final Not Reportable Blood Culture - Preliminary No Growth Day 1 11/01/18 03:40 Aerobic Blood Culture - Final Blood Venous Not Reportable Anaerobic Blood Culture - Final Not Reportable Blood Culture - Preliminary No Growth Day 1 11/01/18 18:28 Gram Stain - Preliminary Abdomen 11/01/18 11:00 Stool Gross Appearance - Final Stool Stool Lactoferrin - Final Assess/Plan/Problems-Billing Assessment: Mrs. Vincent is a 48 yo female with a PMH of hypothyroidism, familial adenomatous polyposis, reports stage 1 colon cancer, s/p colectomy with ostomy who presented to the ER on 11/01 with report of N/V and increased ostomy out found to have severe dehydration, meeting criteria for sepsis. Pt had recently had Italian food with fried rice. - Patient Problems (1) Sepsis Comment: - Resolved. Met criteria on admission with tachycardia, leukocytosis and elevated lactic - suspect this was secondary to severe dehydration. Resolved with IVFs. - blood cx NTD (2) Nausea, vomiting, and diarrhea Comment: - Resolved. No fevers. Reported high output ostomy which now is improving, no further N/V. Tolerating diet - viral gastroenteritis vs food borne pathogen - suspect food borne poathagen as she resolved very quickly. Was started on azithromycin x3 days to cover for Campylobacter which is on the differential considering her meal of Italian food with fried rice. - stool cx negative - Appreciate GI consult agrees with plan - ok to start immodium (3) Dehydration Comment: - resolved (4) Hypothyroidism Comment: - continue home medication (5) DVT prophylaxis Comment: - lovenox (6) Full code status Status and Disposition: inpatient. Home today; stable.
[2018-11-03] MEDS ORDERED: Loperamide CAP* 2 MG PO ONE (09:40)
[2018-11-03] MEDS: Enoxaparin(*) 40 MG/0.4 ML SYR SUBCUT SCH (10:22)
--- NOTE | 2018-11-03 11:43 | DS ---
CC: Dr. Poole, [facility] * DISCHARGE SUMMARY: DATE OF ADMISSION: 11/01/18 DATE OF DISCHARGE: 11/03/18 PROVIDER: Noman Vargas NP ATTENDING PHYSICIAN: Dr. Svetlana Webb * (report dictated by Noman Vargas NP). PRIMARY CARE PROVIDER: Dr. Carter. COLORECTAL SURGEON: Dr. Poole at [facility]. DISCHARGE DIAGNOSES: 1. Nausea, vomiting, diarrhea thought to be secondary to viral gastroenteritis versus foodborne pathogen. 2. Severe dehydration. 3. Electrolyte abnormalities. SECONDARY DIAGNOSES: 1. History of colon cancer, stage I, status post colectomy with J-pouch and ileostomy with reported bladder and ureteral lesions, requiring bilateral stent placement. 2. Hypothyroidism. 3. Familial adenomatous polyposis. 4. Status post oophorectomy. 5. Status post cholecystectomy. 6. Partial colectomy when she was 9 years old. 7. Status post pectus excavatum surgery. 8. Status post hysterectomy. DISCHARGE MEDICATIONS: 1. Synthroid 75 mcg p.o. daily. 2. Hydrocodone/acetaminophen 5/325 mg 1 to 2 tabs p.o. q.4 hours p.r.n. pain. 3. Lovenox 40 mg subcu q.24 hours. 4. Flomax 0.4 mg p.o. daily. 5. Compazine 10 mg p.o. q.8 hours p.r.n. 6. Imodium per previous recommendations from colorectal surgeon. The patient reports she takes 1 to 2 tabs a day of this at home, unknown dosage. ALLERGIES: MORPHINE. HOSPITAL STATUS: Inpatient. DISPOSITION AT DISCHARGE: Stable. HISTORY OF PRESENT ILLNESS AND HOSPITAL COURSE: Please see history and physical by Dr. Mamie Alexandre for full admission details, but in summary, this is a 48-year- old female with a past medical history as stated above, who underwent a recent total colectomy with ileostomy on 09/22/18 for stage I colon cancer, who presented to the emergency department with complaints of nausea, vomiting and increased output from her ileostomy. She reported the day prior she started to have GI upset. She had Macanese food that included chicken wedges and fried rice and after that her GI upset became worse followed by 2 episodes of vomiting and increased output out of her ileostomy. She was concerned about her high output out of the ileostomy and she presented to the emergency department. She met sepsis criteria on admission with tachycardia and leukocytosis, but it was believed that most of those changes were secondary to severe dehydration and not infection. It is suspected that she has a viral gastroenteritis versus foodborne pathogen, more likely being a foodborne pathogen as this resolved very quickly. On admission, the patient's white blood cell count was 20.4; however, this resolved the day after admission. She also had a platelet count of 495 and a creatinine of 2. This resolved with IV fluids. Her sodium was also 129, which resolved with fluid resuscitation. She was also found to have a low magnesium of 1.6 and which she was given replacement. The patient remained afebrile throughout hospitalization. She was noted to have some lower systolic blood pressures in the 80s and 90s, which resolved with IV resuscitation. This was thought to be secondary to dehydration. She reports that she normally runs in the low 100s at her baseline. The patient had 2 sets of blood cultures, both are negative with no growth on day 2. She had a stool culture, which shows no enteric pathogens isolated and her fecal lactoferrin was negative by immunoassay. As well, she had an abdomen Gram stain, which showed no organisms. The patient is back to her baseline and would like to be discharged home. She is stable. She has no dizziness upon ambulation. She reports that her output out of the ileostomy is much improved; however, a little bit increased from her baseline. She states that she has been taking Imodium per the colorectal surgeon 's recommendations twice a day at home and this has been held on her admission. At this time, it is okay to restart the Imodium. She was also seen in consultation by carpentry specialist, Dr. Terry, who agreed she can restart her Imodium. His impression was that most likely this is a viral gastroenteritis versus foodborne pathogen, mostly likely we will probably never know. She was noted to have an elevated alkaline phosphatase, which is nonspecific, but states it might indicate presence of sludge in the common bile duct. He reports that this can be followed. 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 The patient was treated empirically for campylobacter on admission with 3 days of azithromycin, per GI. I thought that this was reasonable. She has finished that course of antibiotics. The patient is stable for discharge home. She has a followup appointment this week with her urologist to remove the stents and a followup with a colorectal surgeon in 2 weeks, which I think is reasonable. I had asked the patient to call her primary care provider's office today for a followup this week. Recommend labs in 2 to 4 days to check chemistry profile along with magnesium as well as a vitamin D level. DISCHARGE PLAN: 1. Discharge to home. The discharge plan was reviewed with the patient and the by myself. 2. Follow up with Dr. Carter within 5 days. 3. Continue to follow up with already scheduled urologist and colorectal surgeon. 4. Return to the emergency department with any worsening or concerning symptoms. 5. Disposition at discharge: Stable. TIME SPENT: Approximately 60 minutes was spent on this discharge. NOMAN VARGAS NP [id number]/[facility] #: [id number] GUY
== END 2018-11-03 10:35 | disposition home or self-care (01) ==
LOC: ED 21:24 → INTOOBSV 11-01 07:23 → MED 11-01 07:23
PROVIDERS: ADMIT Internal Medicine; ATTEND Internal Medicine
DX: R11.2 Nausea with vomiting, unspecified (principal); R19.7 Diarrhea, unspecified; E86.0 Dehydration; E87.8 Other disorders of electrolyte and fluid balance, not elsewhere classified; Z85.038 Personal history of other malignant neoplasm of large intestine; E78.5 Hyperlipidemia, unspecified; Z83.71 Family history of colonic polyps; Z90.710 Acquired absence of both cervix and uterus; Z88.6 Allergy status to analgesic agent; R00.0 Tachycardia, unspecified; E03.9 Hypothyroidism, unspecified; Z87.39 Personal history of other diseases of the musculoskeletal system and connective tissue
CPT/HCPCS: 36415; 74176; 80048; 80053; 80076; 81003; 81015; 82607; 82668; 82728; 83540; 83550; 83605; 83615; 83630; 83690; 83735; 84702; 85025; 85027; 86140; 87040; 87045; 87046; 87070; 87077; 87086; 87186; 87205; 87899; 96361; 96372; 96374; 96375; 99284; A9270-GY; G0378; J0456; J0780; J1650; J2405; J2550; J3475

== ENCOUNTER 2018-11-25 11:58 | Emergency (ER) | payer OTHER ==
[2018-11-25] MEDS ORDERED: NS 0.9% 1000 ML** 1,000 ML IV ONE ×2 (12:55→14:11)
--- NOTE | 2018-11-25 13:45 | ED ---
Dizziness - HPI Summary HPI Summary: Patient is a 48-year-old female presenting to the ED with request for fluids due to dehydration. She was seen at Dr. Poole office yesterday at [place] [facility]. Labs returned with a BUN of 55, creatinine 1.86. Sodium of 123. Her physician's office called her this morning to make sure she comes to the ED for fluids. Patient has been able to tolerate by mouth. She denies any UTI symptoms, back pain, fevers, sweats, chills. She states she feels weaker than normal, but denies any pain. Denies any SOB or CP. She recently had an ileostomy placed/J-pouch for colon cancer approximately 6 weeks ago. - History Of Current Complaint Chief Complaint: EDWeakness Stated Complaint: DEHYDRATION PER PT Time Seen by Provider: 11/25/18 12:41 Hx Obtained From: Patient Timing: Constant Severity Initially: Moderate Severity Currently: Moderate Character: Weak Aggravating Factor(s): Nothing Alleviating Factor(s): Nothing Associated Signs And Symptoms: Positive: Negative - Risk Factors Cardiac Risk Factors: Negative CVA Risk Factor: Negative - Allergies/Home Medications Allergies/Adverse Reactions: Allergies Allergy/AdvReac Type Severity Reaction Status Date / Time morphine Allergy Difficulty Verified 11/25/18 12:03 Breathing PMH/Surg Hx/FS Hx/Imm Hx Previously Healthy: Yes Endocrine/Hematology History: Denies: Hx Diabetes Cardiovascular History: Denies: Hx Hypertension, Hx Pacemaker/ICD GI History: Reports: Other GI Disorders - resection of all Large bowels History: Reports: Other Problems/Disorders - hx renal calculi resolved in 2009 Denies: Hx Renal Disease Sensory History: Reports: Hx Contacts or Glasses Denies: Hx Hearing Aid Opthamlomology History: Reports: Hx Contacts or Glasses Neurological History: Reports: Hx Headaches, Hx Migraine Psychiatric History: Denies: Hx Panic Disorder - Cancer History Cancer Type, Location and Year: Colon CA - Surgical History Surgery Procedure, Year, and Place: chest surgery (PECTUS EXCAVATUM W/ METAL JANAY IN CHEST) 83;- METAL RODS REMOVED 2016. hysterectomy 02;. cholectomy 07;. 91;. COLON - REMOVED - DUE AFC - HEREDIT[facility]. ileostomy/Jpouch. ureteral stents bilaterally Hx Anesthesia Reactions: No - Immunization History Hx Pertussis Vaccination: No Immunizations Up to Date: Yes Infectious Disease History: No Infectious Disease History: Denies: Traveled Outside the [place] in Last 30 Days - Family History Known Family History: Negative: Cardiac Disease, Hypertension, Diabetes - Social History Occupation: Employed Full-time Lives: With Family Alcohol Use: Occasionally Hx Substance Use: No Substance Use Type: Reports: None Hx Tobacco Use: No Smoking Status (MU): Never Smoked Tobacco Review of Systems Constitutional: Negative Negative: Fever, Chills, Fatigue, Skin Diaphoresis Negative: Palpitations, Chest Pain Negative: Shortness Of Breath, Cough Genitourinary: Negative Positive: no symptoms reported, see HPI Skin: Negative Neurological: Negative All Other Systems Reviewed And Are Negative: Yes Physical Exam Triage Information Reviewed: Yes Vital Signs On Initial Exam: Initial Vitals Temp Pulse Resp BP Pulse Ox 98.9 F 97 16 95/69 97 11/25/18 11:59 11/25/18 11:59 11/25/18 11:59 11/25/18 11:59 11/25/18 11:59 Vital Signs Reviewed: Yes Appearance: Positive: Well-Appearing, No Pain Distress, Well-Nourished Skin: Positive: Warm, Skin Color Reflects Adequate Perfusion Head/Face: Positive: Normal Head/Face Inspection Eyes: Positive: EOMI, VANGIE, Conjunctiva Clear Neck: Positive: Supple, No Lymphadenopathy - E Respiratory/Lung Sounds: Positive: Clear to Auscultation, Breath Sounds Present Diagnostics - Vital Signs Vital Signs Temp Pulse Resp BP Pulse Ox 11/25/18 11:59 98.9 F 97 16 95/69 97 - Laboratory Lab Statement: Any lab studies that have been ordered have been reviewed, and results considered in the medical decision making process. Dizzy Course/Dx - Course Course Of Treatment: Was treatment, the patient's evaluated for weakness. She states she is here for fluids. Provider called [place] [facility] to request lab work. Labs obtained from yesterday which show a 123 sodium a BUN of 55 and a creatinine of 1.86. She is given 2 L fluids in the ED. She states she is feeling improved after the fluids. She'll be discharged back to the care of Dr. Poole. She denies any other concerns or complaints at this time. - Diagnoses Provider Diagnoses: Dehydration, Elevated BUN Discharge - Sign-Out/Discharge Documenting (check all that apply): Patient Departure Patient Received Moderate/Deep Sedation with Procedure: No - Discharge Plan Condition: Stable Disposition: HOME Patient Education Materials: Dehydration (ED) Referrals: Tobin Carter MD [Primary Care Provider] - Additional Instructions: Please follow up very carefully with your Dr Poole in [place] Call tomorrow - Billing Disposition and Condition Condition: STABLE Disposition: Home
[2018-11-25 16:45] VITALS: BP 97/56
== END 2018-11-25 16:44 | disposition home or self-care (01) ==
LOC: ED 11:58
DX: E86.0 Dehydration (principal); R79.89 Other specified abnormal findings of blood chemistry; Z88.5 Allergy status to narcotic agent
CPT/HCPCS: 96360; 96361; 99282

== ENCOUNTER 2018-12-13 15:57 | Emergency (ER) | payer OTHER ==
--- NOTE | 2018-12-13 16:08 | ED ---
Complex/Multi-Sys Presentation - HPI Summary HPI Summary: Patient is a 48 y/o F w/ illeostomy bag, s/p colon resection due to colon CA, presenting to ED with complaints of dehydration. She states that colon resection occurred on 09/22/18 and reports that she has been to ED three times previously for similar issues since this surgery. Fatigue is endorsed but she denies abdominal pain, chest pain, SOB. She additionally notes some loose stool in illeostomy bag. Patient takes Imodium 4x daily. She notes that she typically received two liters during her previous visit. Home medications and allergies are reviewed. - History Of Current Complaint Chief Complaint: EDGeneral Hx Obtained From: Patient Onset/Duration: Still Present Timing: Constant Severity Currently: None - pain denied Aggravating Factor(s): nothing Alleviating Factor(s): nothing Associated Signs And Symptoms: Positive: Other - positive - fatigue. Negative: SOB, Chest Pain, Abdominal Pain - Allergies/Home Medications Allergies/Adverse Reactions: Allergies Allergy/AdvReac Type Severity Reaction Status Date / Time morphine Allergy Difficulty Verified 12/13/18 16:00 Breathing PMH/Surg Hx/FS Hx/Imm Hx Endocrine/Hematology History: Denies: Hx Diabetes Cardiovascular History: Denies: Hx Hypertension, Hx Pacemaker/ICD GI History: Reports: Other GI Disorders - resection of all Large bowels History: Reports: Other Problems/Disorders - hx renal calculi resolved in 2009 Denies: Hx Renal Disease Sensory History: Reports: Hx Contacts or Glasses Denies: Hx Hearing Aid Opthamlomology History: Reports: Hx Contacts or Glasses Neurological History: Reports: Hx Headaches, Hx Migraine Psychiatric History: Denies: Hx Panic Disorder - Cancer History Cancer Type, Location and Year: Colon CA - Surgical History Surgery Procedure, Year, and Place: chest surgery (PECTUS EXCAVATUM W/ METAL JANAY IN CHEST) 83;- METAL RODS REMOVED 2016. hysterectomy 02;. cholectomy 07;. 91;. COLON - REMOVED - DUE [facility] - [facility]. ileostomy/Jpouch. ureteral stents bilaterally Hx Anesthesia Reactions: No Infectious Disease History: No Infectious Disease History: Denies: Traveled Outside the [place] in Last 30 Days - Family History Known Family History: Negative: Cardiac Disease, Hypertension, Diabetes - Social History Alcohol Use: Occasionally Hx Substance Use: No Substance Use Type: Reports: None Hx Tobacco Use: No Smoking Status (MU): Never Smoked Tobacco Review of Systems Positive: Fatigue Negative: Chest Pain Negative: Shortness Of Breath Negative: Abdominal Pain All Other Systems Reviewed And Are Negative: Yes Physical Exam - Summary Physical Exam Summary: Appearance: Well appearing, no pain distress Skin: warm, dry, reflects adequate perfusion Head/face: normal Eyes: EOMI, VANGIE ENT: normal Neck: supple, non-tender Respiratory: CTA, breath sounds present Cardiovascular: RRR, pulses symmetrical Abdomen: non-tender, soft, illeostomy bag is present Musculoskeletal: normal, strength/ROM intact Neuro: normal, sensory motor intact, A&Ox3 Triage Information Reviewed: Yes Vital Signs On Initial Exam: Initial Vitals Temp Pulse Resp BP Pulse Ox 99.0 F 99 16 125/85 100 12/13/18 15:58 12/13/18 15:58 12/13/18 15:58 12/13/18 15:58 12/13/18 15:58 Vital Signs Reviewed: Yes Diagnostics - Vital Signs Vital Signs Temp Pulse Resp BP Pulse Ox 12/13/18 15:58 99.0 F 99 16 125/85 100 - Laboratory Result Diagrams: 12/13/18 16:43 12/13/18 16:43 Lab Statement: Any lab studies that have been ordered have been reviewed, and results considered in the medical decision making process. Re-Evaluation - Re-Evaluation First Eval Re-Evaluation Time: 18:38 Comment: Results of labs and tests were discussed with the patient. Patient to be discharged to home and will follow up for repeat lab work in a week. Strict return precautions given. Patient understands and agrees with plan as discussed. Complex Multi-Symp Course/Dx Course Of Treatment: Patient is a 48 y/o F w/ illeostomy bag, s/p colon resection due to colon CA, presenting to ED with complaints of dehydration. She states that colon resection occurred on 09/22/18 and reports that she has been to ED three times previously for similar issues since this surgery. Fatigue is endorsed but she denies abdominal pain, chest pain, SOB. She additionally notes some loose stool in illeostomy bag. Patient takes Imodium 4x daily. She notes that she typically received two liters during her previous visit. Physical exam unremarkable except for illeostomy bag. Bloodwork obtained. Patient received fluids. Results of labs and tests were discussed with the patient. Patient to be discharged to home and will follow up for repeat lab work in a week. Strict return precautions given. Patient understands and agrees with plan as discussed. - Diagnoses Differential Diagnoses/HQI/PQRI: Metabolic Abnormality Provider Diagnoses: Dehydration, Hyponatremia Discharge - Sign-Out/Discharge Documenting (check all that apply): Patient Departure - discharge Patient Received Moderate/Deep Sedation with Procedure: No - Discharge Plan Condition: Stable Disposition: HOME Patient Education Materials: Dehydration (ED), Hyponatremia (ED) Referrals: Tobin Carter MD [Primary Care Provider] - 1 Week Additional Instructions: PLEASE RETURN TO ED FOR ANY NEW OR WORSENING SYMPTOMS. YOU ARE ADVISED TO GET LABWORK REPEATED IN ONE WEEK. - Billing Disposition and Condition Condition: STABLE Disposition: Home - Attestation Statements Document Initiated by Erick: Yes Documenting Scribe: CAROLINE DAILEY Provider For Whom Erick is Documenting (Include Credential): ABUNDIO HURST MD Scribe Attestation: CAROLINE Raines, scribed for ABUNDIO HURST MD on 12/13/18 at 1853. Scribe Documentation Reviewed: Yes Provider Attestation: The documentation as recorded by the CAROLINE rdz accurately reflects the service I personally performed and the decisions made by , ABUNDIO HURST MD Status of Scribe Document: Viewed
[2018-12-13] MEDS ORDERED: ED cefTRIAXone 1 GM/50 ML 1 GM/50 ML PREMIX.SET IVPB ONE (16:33)
[2018-12-13] MEDS ORDERED: NS 0.9% 1000 ML** 2,000 ML IV ONE (16:33)
[2018-12-13 16:48] LABS: ABS Eosinophils 0.3 10^3/ul (0-0.6); ABS Lymphocytes 1.4 10^3/ul (1.0-4.8); ABS Monocytes 0.7 10^3/ul (0-0.8); ABS Neutrophils 3.9 10^3/ul (1.5-7.7); Eosinophil % 4.2 %; Hematocrit 33 % (35-47); Lymphocyte % 22.7 %; Mean Corpuscular HGB Conc 34 g/dL (31-36); Mean Corpuscular Hemoglobin 28 pg (27-31); Mean Corpuscular Volume 82 fL (80-97); Mean Platelet Volume 6.8 fL (7.4-10.4); Platelet Count 395 10^3/uL (150-450); Red Blood Count 3.98 10^6 /uL (3.70-4.87); Red Cell Distribution Width 15 % (10-15); White Blood Count 6.2 10^3/uL (3.5-10.8)
[2018-12-13 17:06] LABS: Albumin 4.1 g/dL (3.2-5.2); Albumin/Globulin Ratio 1.5 (1-3); BUN/Creatinine Ratio 14.5 (8-20); Calcium 9.1 mg/dL (8.6-10.3); EGFR African American 88.4 (>60); EGFR Non-African American 73.1 (>60); Globulin 2.7 g/dL (2-4); Potassium 3.4 mmol/L (3.5-5.0); Total Protein 6.8 g/dL (6.4-8.9)
[2018-12-13 17:12] LABS: HCG Pregnancy 9.03 mIU/mL
[2018-12-13 18:57] VITALS: BP 101/60
== END 2018-12-13 18:56 | disposition home or self-care (01) ==
LOC: ED 15:57
DX: E86.0 Dehydration (principal); E87.1 Hypo-osmolality and hyponatremia; Z93.2 Ileostomy status; Z88.5 Allergy status to narcotic agent; Z79.899 Other long term (current) drug therapy
CPT/HCPCS: 36415; 80053; 84702; 85025; 96361; 96374; 99282